=== PATIENT | female | born 1960 | race Caucasian/White ===

== ENCOUNTER 2016-12-07 20:46 | Emergency (ER) | payer OTHER ==
[2016-12-07 21:24] VITALS: BP 117/56
== END 2016-12-07 23:45 | disposition home or self-care (01) ==
LOC: ED 20:46
DX: M25.512 Pain in left shoulder (principal)
CPT/HCPCS: Q0092

== ENCOUNTER 2017-09-02 18:52 | Emergency (ER) | payer OTHER ==
[~2017-09-02] VITALS: Ht 162.6 cm; Wt 49.4 kg
[2017-09-02 19:02] VITALS: Ht 162.6 cm; Wt 49.4 kg
[2017-09-02 20:50] LABS: BASOPHIL % 0.3 % (0-2); PLATELET COUNT 262 x10^3mcL (130-400); RED CELL DISTRIBUTION WIDTH 12.6 % (11.5-14.5)
[2017-09-02 20:53] LABS: UA SPECIFIC GRAVITY 1.025 (1.005-1.035); microscopic required? YES; urine erythrocyte 1+ (NEGATIVE)
[2017-09-02 21:09] LABS: CALCIUM 9.2 mg/dL (8.5-10.1); CARBON DIOXIDE 32.7 mmol/L (21-32); CHLORIDE SERUM 111 mmol/L (98-107); CREATININE SERUM 0.7 mg/dL (0.6-1.0); GFR1 > 60 mL/min; GLUCOSE SERUM 114 mg/dL (74-106); POTASSIUM SERUM 4.1 mmol/L (3.5-5.1); SODIUM SERUM 148 mmol/L (136-145)
[2017-09-02 21:15] LABS: ALBUMIN 3.7 g/dL (3.4-5.0); ALKALINE PHOSPHATASE 88 U/L (46-116); ALT/SGPT 23 U/L (14-59); AST/SGOT 18 U/L (15-37); BILIRUBIN TOTAL 0.3 mg/dL (0.20-1.00); LIPASE 134 IU/L (73-393); TOTAL PROTEIN, SERUM 7.7 g/dL (6.4-8.2)
[2017-09-03 00:12] VITALS: BP 132/72
== END 2017-09-03 00:12 | disposition home or self-care (01) ==
LOC: ED 18:52
PROVIDERS: Emergency Medicine
DX: R10.13 Epigastric pain (principal)
CPT/HCPCS: 36415

== ENCOUNTER 2018-02-22 14:55 | Emergency (ER) | payer OTHER ==
[~2018-02-22] VITALS: Ht 157.5 cm; Wt 51.3 kg
[2018-02-22 15:02] VITALS: BP 121/72; Ht 157.5 cm; Wt 51.3 kg
[2018-02-22 15:52] LABS: UA SPECIFIC GRAVITY 1.025 (1.005-1.035); microscopic required? YES; urine erythrocyte TRACE (NEGATIVE)
== END 2018-02-22 17:17 | disposition home or self-care (01) ==
LOC: ED 14:55
PROVIDERS: Emergency Medicine
DX: M54.5 Low back pain (principal)
CPT/HCPCS: J1885

== ENCOUNTER 2018-07-16 20:32 | Emergency (ER) | payer OTHER ==
[~2018-07-16] VITALS: Ht 157.5 cm; Wt 52.2 kg
[2018-07-16 20:55] VITALS: Ht 157.5 cm; Wt 52.2 kg
[2018-07-16 23:50] VITALS: BP 140/81
== END 2018-07-16 23:50 | disposition home or self-care (01) ==
LOC: ED 20:32
DX: R51 Headache (principal); E78.00 Pure hypercholesterolemia, unspecified
CPT/HCPCS: J1885; J8597; Q0163